=== PATIENT | female | born 1935 | race Caucasian/White ===

== ENCOUNTER → 2016-09-17 | Outpatient (CLI) | payer MEDICARE, BC ==
[~2016-09-17] VITALS: Ht 160 cm; Wt 85.7 kg
[~2016-09-17] MED LIST: ASPIRIN E.C. 8181 MG PO; BIOTIN5000 MCG PO; COMPLETE SENIOR1 TA1 PO; HCTZ 25MG TAB25 MG PO; LEVOXYL0.05 MG PO; MOBIC 7.5MG7.5 MG PO; PROTONIX 40MG T40 MG PO; STOOL SOFTENER100 M2 PO; ULTRACET TABL1 UDTAB PO; ZOCOR 40MG40 MG PO
[2016-09-17 09:17] VITALS: BP 159/91; PULSE 71
[2016-09-17 10:18] VITALS: BP 158/88; PULSE 74
== END ==
LOC: COL.RAD 09-07 13:00
DX: M54.2 Cervicalgia (principal)
CPT/HCPCS: J1100